=== PATIENT | male | born 1970 | race Two or more races ===

== ENCOUNTER 2016-10-18 12:53 | Emergency (ER) | payer SELFPAY ==
[2016-10-18 13:03] VITALS: BP 153/86; PULSE 83; RESP 18; TEMP 99.1; O2SAT 98
--- NOTE | 2016-10-18 13:24 | EDPHY ---
H & P Time Seen by Provider: 10/18/16 12:57 HPI/ROS: CHIEF COMPLAINT: Tooth pain History by patient HISTORY OF PRESENT ILLNESS: 45-year-old otherwise healthy man presents complaining of pain in his gum and tooth at the site of a cracked tooth. Patient states he has had intermittent trouble on this area for several years since he corrected at least 7 years ago. He was seen for this a couple years ago and given antibiotics and cleared up and he never saw a dentist. He woke up this morning with extreme pain and noticed swelling and some purulent drainage. He rinsed with salt water which seemed to help it drain more. He says his lymph nodes in his left neck are kind of sore. He denies any fever. He denies any difficulty speaking, swallowing or breathing. REVIEW OF SYSTEMS: As in HPI, and all other systems reviewed and are negative Smoking Status: Never smoked Physical Exam: General Appearance: Alert and no distress. Head: normocephalic, atraumatic, no sinus tenderness Eyes: Pupils equal and round no injection. Ears: TM clear bilat OP: no stridor or drooling, mucus membranes moist, no tonsillar enlargement, no exudates Positive left lower molar cracked with obvious caries, positive swelling with purulent drainage on gum line on buccal side with mild tenderness, tongue side not involved, no swelling of the floor of the mouth Constitutional: Initial Vital Signs Temperature (C) 37.3 C 10/18/16 13:02 Heart Rate 83 10/18/16 13:02 Respiratory Rate 18 10/18/16 13:02 Blood Pressure 153/86 H 10/18/16 13:02 O2 Sat (%) 98 10/18/16 13:02 O2 Delivery Mode Room Air Allergies/Adverse Reactions: No Known Allergies Allergy (Unverified 10/18/16 13:01) Home Medications: Medication Instructions Recorded Penicillin V Potassium [Pen Vk 500 mg PO Q6H 10 Days 10/18/16 500mg (*)] MDM/Departure - MDM ED Course/Re-evaluation: 45-year-old otherwise healthy man presents with left molar tooth abscess. There is no evidence of systemic toxicity or Adelso's angina. Patient started on antibiotics and I recommend ibuprofen and Tylenol for pain control. I am recommending follow up with a dentist within 48 hours. The patient expressed full understanding of this plan. He states he will see a dentist as soon as he can. - Depart Disposition: Home, Routine, Self-Care Clinical Impression: Tooth infection Condition: Good Instructions: Dental Abscess (ED) Additional Instructions: You were seen by Dr. Samantha Hoang today. Return for any worsening or new concerns. Take ibuprofen 600 mg 4 times a day as needed for pain. You may also take Tylenol with ibuprofen if ibuprofen is not sufficient. Rinse her mouth with warm salt water 3 times daily. Take antibiotics as prescribed. See a dentist as soon as possible! Prescriptions: Penicillin V Potassium [Pen Vk 500mg (*)] 500 mg PO Q6H 10 Days Referrals: NONE *PRIMARY CARE P,. [Primary Care Provider] - As per Instructions [facility] [Outside] - As per Instructions [facility] [Outside] - As per Instructions Dental [facility] [Outside] - As per Instructions Dental [facility] [Outside] - As per Instructions Dental [facility] [Outside] - As per Instructions DDS [Provider Group] - 1-2 days without fail
== END 2016-10-18 13:30 | disposition home or self-care (01) ==
LOC: CED 12:53
DX: K04.7 Periapical abscess without sinus (principal)